=== PATIENT | male | born 1985 | race Two or more races ===

== ENCOUNTER 2019-03-29 11:06 | Emergency (ER) | payer SELFPAY ==
[~2019-03-29] VITALS: Ht 167.6 cm; Wt 68.0 kg
[2019-03-29 11:19] VITALS: BP 121/88
[2019-03-29] MEDS ORDERED: Bacitracin Oint UD TOPIC ONE (11:45)
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
[2019-03-29 11:54] VITALS: BP 121/88
== END 2019-03-29 12:10 ==
LOC: EMR 12:02
DX: S40.011A Contusion of right shoulder, initial encounter (principal); T20.12XA Burn of first degree of lip(s), initial encounter; Y35.813A Legal intervention involving manhandling, suspect injured, initial encounter; Y92.9 Unspecified place or not applicable; R00.0 Tachycardia, unspecified
CPT/HCPCS: 99282